=== PATIENT | female | born 2000 | race Caucasian/White ===

== ENCOUNTER 2021-02-27 15:47 | Emergency (ER) | payer OTHER, SELFPAY ==
--- NOTE | 2021-02-27 15:53 | ED.NAVMDI ---
HPI - Nausea/Vomiting/Diarrhea General Chief complaint: Nausea/Vomiting/Diarrhea Stated complaint: 12 wks , vomiting Time Seen by Provider: 02/27/21 15:50 Source: patient Mode of arrival: ambulatory Limitations: no limitations History of Present Illness HPI Narrative: Patient is a 20-year-old female at 12 weeks age of gestation complaining of nausea vomiting that started since the beginning of her but run out of her ondansetron that was prescribed to her by her [employer] PROFESSIONAL for nausea vomiting. Patient denies any abdominal pain, vaginal bleeding or vaginal discharge. Patient states that she has had care, has had an ultrasound and recently seen her RETAIL SECURITY PROFESSIONAL this past week. Related Data Allergies Allergy/AdvReac Type Severity Reaction Status Date / Time No Known Allergies Allergy Verified 02/27/21 16:12 Review of Systems Review of Systems: All systems reviewed & are unremarkable except as noted in HPI and below Constitutional: Constitutional: Denies body ache(s), Denies chills, Denies excessive sweating, Denies fatigue, Denies fever(s), Denies headache(s), Denies lethargy, Denies malaise, Denies weakness and Denies weight loss Eyes: Eyes: Denies blurry vision, Denies change in vision and Denies loss of vision ENT: Denies dizziness, Denies ear discharge, Denies headache(s), Denies lip swelling, Denies epistaxis, Denies nasal congestion, Denies neck pain, Denies throat swelling and Denies tongue swelling Cardiovascular: Cardiovascular: Denies chest pain, Denies chest pain at rest, Denies chest pain with activity, Denies diaphoresis, Denies rapid heart rate, Denies edema, Denies irregular heart rhythm, Denies lightheadedness, Denies palpitations, Denies dyspnea and Denies dyspnea on exertion Respiratory: Respiratory: Denies chest congestion, Denies cough, Denies hemoptysis, Denies dyspnea and Denies dyspnea on exertion Gastrointestinal: Gastrointestinal: Denies abdominal pain, Denies melena, Denies hematochezia, Denies diarrhea and Denies hematemesis Musculoskeletal: Musculoskeletal: Denies abnormal gait, Denies deformity, Denies joint swelling, Denies limited range of motion, Denies neck pain and Denies numbness Neurologic: Denies Abnormal speech present, Denies abnormal gait, Denies confusion, Denies dizziness, Denies headache(s), Denies focal weakness, Denies loss of vision, Denies numbness, Denies Other visual disturbances, Denies Sensory deficit (Neuro) and Denies weakness Psychiatric: Psychiatric: Denies confusion, Denies depression, Denies auditory hallucinations, Denies homicidal ideation and Denies suicidal ideation Endocrine: Endocrine: Denies cold intolerance, Denies excessive sweating, Denies fatigue, Denies heat intolerance and Denies palpitations Hematologic/Lymphatic: Hematologic/Lymphatic: Denies easy bleeding and Denies easy bruising Allergic/Immunologic: Allergic/Immunologic: Denies lip swelling, Denies throat swelling and Denies tongue swelling PMFSH Comments Past medical history: None Social history: Non-smoker no EtOH or drug use Family history: Noncontributory Exam Const: General: cooperative, healthy appearing, comfortable, no acute distress, well developed, alert and awake; No confusion Orientation/consciousness: oriented to person, oriented to place, oriented to time, patient oriented x3 and No confusion Limitations: no limitations HENMT: Head: normal to inspection, normocephalic and atraumatic Ears: hearing grossly normal bilaterally, TM normal on the right and TM normal on the left General nose exam: Normal external nose present, Normal nares present and No nasal discharge present Face and sinus: normal facial exam Mouth: Yes Normal oral and palatal mucosa present, Yes lip normal, Yes tongue normal and Yes oropharynx normal Throat: posterior oropharynx normal, tonsils normal and uvula midline Eyes: General: appearance normal, both eyes and all related structures Pupils: Equal, round a
[2021-02-27 15:55] VITALS: BP 135/88; PULSE 102; RESP 16; TEMP 36.6; O2SAT 98
[2021-02-27 16:14] LABS: Basophils Percent Auto 0.3 % (0.2-1.2); Eosinophils Percent Auto 0.3 % (0-4.4); Hematocrit 40.3 % (37.0-47.0); Hemoglobin 14.1 g/dL (12.0-15.0); Immature Granulocyte Absolute 0.03 K/mm3 (0.00-0.031); Immature Granulocyte Percent A 0.3 % (0-0.5); Lymphocytes Absolute Auto 1.42 K/mm3 (0.9-3.2); Lymphocytes Percent Auto 12.3 % (18.3-44.2); Mean Corpuscular Hemoglobin 32.6 pg (26-34); Mean Corpuscular Volume 93.3 fl (80-100); Mean Platelet Volume 10.9 fl (7.4-10.4); Monocytes Absolute Auto 0.8 K/mm3 (0.1-0.6); Monocytes Percent Auto 6.5 % (2.6-8.5); Neutrophils Absolute Auto 9.2 K/mm3 (1.3-6.7); Neutrophils Percent Auto 80.3 % (45.5-73.1); Platelet Count Result 307 k/mm3 (150-375); Red Blood Count 4.32 M/mm3 (4.2-5.4); Red Cell Distribution Width 12.3 % (11.5-14.5); White Blood Count 11.5 K/mm3 (4.5-10.0)
[2021-02-27 16:19] LABS: Add Urine Microscopic? YES; Appearance Urine Cloudy (Clear); Bacteria Urine Trace /hpf; Bilirubin Urine Negative (Negative); Blood Urine Negative (Negative); Color Urine Amber (Yellow); Glucose Urine UA Negative (Negative); Ketones Urine 2+ mg/dL (Negative); Leukocyte Esterase Ur Negative LEU/UL (Negative); Mucus Urine Heavy /lpf; Nitrate Urine Negative (Negative); Protein Urine 2+ mg/dL (Negative); RBC Urine 0-2 /hpf (0-2); Specific Grav Ur 1.028 (1.001-1.035); Squamous Epithelial Cell Urine Moderate /hpf (Few); WBC Urine 0-3 /hpf
[2021-02-27] MEDS: SODIUM CHLORIDE 0.9% IV 1,000 ML 999 ML IV CONT (16:19)
[2021-02-27 16:34] LABS: Alanine Aminotransferase 14 U/L (4-35); Albumin Level 4.6 g/dL (3.5-5.1); Alkaline Phosphatase 74 U/L (38-126); Anion Gap 8 mmol/L (8-16); Aspartate Amino Transferase 29 U/L (14-36); Bilirubin,Total 0.5 mg/dL (0.2-1.3); Blood Urea Nitrogen 6 mg/dL (7-17); Calcium 10.1 mg/dL (8.4-10.2); Carbon Dioxide 25 mmol/L (22-30); Chloride 105 mmol/L (98-107); Estimated CRCL calculation 114 ml/min; Estimated Glomerular Filt Rate > 60; Glucose 84 mg/dL (65-105); Lipase 62 U/L (23-300); Potassium 3.9 mmol/L (3.4-5.0); Sodium 138 mmol/L (137-145)
[2021-02-27] MEDS: SODIUM CHLORIDE 0.9% IV 50 ML 400 ML (17:44)
[2021-02-27] MEDS: PROMETHAZINE HCL 25 MG/ML AMPUL 12.5 MG IV PUSH (17:44)
[2021-02-27 18:15] VITALS: BP 110/62; PULSE 100; RESP 16; O2SAT 96
== END 2021-02-27 18:15 | disposition home or self-care (01) ==
PROVIDERS: Emergency Provider Emergency Medicine; PCP Family Medicine
DX: O21.9 Vomiting of pregnancy, unspecified (principal); Z3A.12 12 weeks gestation of pregnancy
CPT/HCPCS: 36415; 80053; 81001; 83690; 85025; 96361; 96374; 99284; J2550; J7030

== ENCOUNTER 2021-05-25 16:10 | Observation (INO) | payer OTHER, SELFPAY ==
[2021-05-25 16:24] VITALS: BP 120/68; PULSE 98
[2021-05-25 16:30] VITALS: BMI 30.2
--- NOTE | 2021-05-25 16:31 | OBADM ---
This patient, Maria Teresa Bliss, admitted to the OB room OB Post 116 for observation. Patient/family oriented to hospital policies and general routines including ID bracelet, bed and alarms, visiting hours, pain management, procedures, bathroom and other care routines, personal items, smoking policy, room service/diet, and visiting hours. Patient/Family are encouraged to report perceived risks to care and to ask questions if they do not understand what they are told or what they should do.
--- NOTE | 2021-05-27 07:06 | PM.OBTRLD ---
OB - Triage/Final Diagnosis Visit Information Reason for evaluation: threatened labor Comments/Additional reasons for admission: I have assessed the risk for this patient, Maria Teresa Bliss, and determined that she would benefit from observation care.
== END 2021-05-25 17:05 | disposition home or self-care (01) ==
PROVIDERS: Admitting Provider Obstetrics & Gynecology; PCP Family Medicine; Visit Provider Obstetrics & Gynecology
DX: O47.02 False labor before 37 completed weeks of gestation, second trimester (principal); Z3A.24 24 weeks gestation of pregnancy
CPT/HCPCS: 59025; G0378; G0379

== ENCOUNTER 2021-09-07 06:14 | Inpatient (IN) | payer OTHER, SELFPAY ==
[2021-09-07] VITALS (203 sets, daily range): BP systolic 66–136; BP diastolic 32–98; PULSE 63–152; TEMP 36.6–38.3; O2SAT 79–100; BMI 33.3
[2021-09-07] MEDS: OXYTOCIN 30 UNITS/NS 500 ML 30 UNITS/500 ML BAG IV CONT (07:12)
[2021-09-07] MEDS: LACTATED RINGERS 1,000 ML 125 ML IV CONT ×3 (07:13→16:30)
[2021-09-07 07:22] LABS: Basophils Absolute Auto 0.1 K/mm3 (0.0-0.1); Basophils Percent Auto 0.4 % (0.2-1.2); Eosinophils Absolute Auto 0.1 K/mm3 (0-0.3); Hematocrit 36.1 % (37.0-47.0); Hemoglobin 12.3 g/dL (12.0-15.0); Immature Granulocyte Absolute 0.08 K/mm3 (0.00-0.031); Immature Granulocyte Percent A 0.7 % (0-0.5); Lymphocytes Absolute Auto 2.26 K/mm3 (0.9-3.2); Mean Corpuscular HGB Conc 34.1 g/dl (32-36); Mean Corpuscular Hemoglobin 32.1 pg (26-34); Mean Corpuscular Volume 94.3 fl (80-100); Mean Platelet Volume 11.6 fl (7.4-10.4); Monocytes Absolute Auto 1.1 K/mm3 (0.1-0.6); Neutrophils Absolute Auto 8.3 K/mm3 (1.3-6.7); Neutrophils Percent Auto 69.9 % (45.5-73.1); Platelet Count Result 241 k/mm3 (150-375); Red Blood Count 3.83 M/mm3 (4.2-5.4); Red Cell Distribution Width 14.2 % (11.5-14.5); White Blood Count 11.9 K/mm3 (4.5-10.0)
--- NOTE | 2021-09-07 07:26 | LDADM ---
This patient, Maria Teresa Bliss, was admitted to Labor/Delivery/Recovery 108 on 09/07/21 at 06:14. Plans for labor, pain management and were discussed with patient. Patient/family oriented to hospital policies and general routines including ID bracelet, bed and alarms, visiting hours, pain management, procedures, bathroom and other care routines, personal items, smoking policy, room service/diet and guest tray routines, security routines, and visiting hours. Patient/Family are encouraged to report perceived risks to care and to ask questions if they do not understand what they are told or what they should do. See OBIX for further documentation.
--- NOTE | 2021-09-07 07:28 | PM.IMHP ---
H&P: HPI History of Present Illness Date/Time: 09/07/21 07:06 Maria Teresa is a 21yo @ 39.3wks (KIMMY 09/11/21) who presents for elective IOL. She reports good movement. Irregular contractions. No Vb or LOF. She has had routine care. Her is complicated by: - Anemia on iron twice daily Chief Complaint: induction of labor Review of Systems Review of Systems: All systems reviewed & are unremarkable except as noted in HPI and below (HPI) [facility] Family History Family History Other No pertinent family history Social History Social History Substance use: never Spiritual care concerns: No Meds Home Medications and Allergies Home Medications Medication Instructions Recorded Confirmed Type ondansetron HCl [Zofran] 4 mg PO Q8H PRN #10 tablet 02/27/21 08/18/21 Rx PNV cmb#95-ferrous fumarate-FA 1 tablet PO DAILY 08/18/21 08/18/21 History [] doxylamine succinate [Unisom 25 mg PO HS PRN 08/18/21 08/18/21 History (doxylamine)] ferrous sulfate [Iron (ferrous 325 mg PO DAILY 08/18/21 08/18/21 History sulfate)] pyridoxine (vitamin B6) 5 mg PO DAILY 08/18/21 08/18/21 History Allergies Allergy/AdvReac Type Severity Reaction Status Date / Time No Known Allergies Allergy Verified 02/27/21 16:12 Exam Const: General: cooperative, healthy appearing, comfortable and no acute distress Resp: Effort & Inspection: normal respiratory effort Cardio: Rate: regular rate GI: Inspection: normal to inspection and non-distended GI Palp: Yes Soft to palpation : Other: FHT's: 120's/ mod ed/ + accels/ no decels - cat 1 TOCO: irregular ctx's q2-6min Cervix: 3/50/-3 Membranes: AROM, clear 0725 Presentation: cephalic Skin: General skin exam: normal color Neuro: General: patient oriented x3 Extrem: General: normal to inspection Psych: Appearance: grossly normal Affect: normal affect Attitude: cooperative Assessment and Plan Assessment and plan (1) Elective induction of labor planned: Status: Acute (2) : Qualifiers: Weeks of gestation: 39 weeks Qualified Code(s): Z3A.39 - 39 weeks gestation of Code(s): Z34.90 - Encounter for supervision of normal , unspecified, unspecified trimester Status: Acute Additional Plan - Admitted to L&D for elective IOL - Pitocin per protocol - Continuous monitoring; reassuring - GBS negative - Anesthesia consult PRN pain
--- NOTE | 2021-09-07 07:28 | WPDHPUPDATE1 ---
History and Physical Update Update Date/Time: 09/07/21 07:28 History and Physical has been reviewed, including an updated exam of the patient. There are NO changes in the patient's condition. Risks, benefits, and alternatives have been discussed and questions answered. Patient agrees to proceed with procedure.
[2021-09-07] MEDS: fentaNYL CITRATE INJ (*CRX) 100 MCG/2 ML VIAL 50 MCG IV PUSH (09:44)
--- NOTE | 2021-09-07 10:21 | WPDANESEPPF ---
Anes - Initial Pre Proc Eval Procedure: labor epidural Date/Time: 09/07/21 10:21 Surgeon: Cathleen Pérez MD Pre Op Diagnosis: labor pain Pre Op Diagnosis: Induction of Labor Patient Data Age: 21 Gender: F Height: 1.57 m Weight: 82.5 kg Last Vital Signs Temp 36.8 C 09/07/21 09:30 Pulse 69 09/07/21 10:00 BP 119/73 09/07/21 10:00 Pulse Ox 99 09/07/21 10:16 Allergies Allergy/AdvReac Type Severity Reaction Status Date / Time No Known Allergies Allergy Verified 02/27/21 16:12 Home Medications Medication Instructions Recorded Confirmed Type ondansetron HCl [Zofran] 4 mg PO Q8H PRN #10 tablet 02/27/21 09/07/21 Rx PNV cmb#95-ferrous fumarate-FA 1 tablet PO DAILY 08/18/21 09/07/21 History [] doxylamine succinate [Unisom 25 mg PO HS PRN 08/18/21 09/07/21 History (doxylamine)] ferrous sulfate [Iron (ferrous 325 mg PO DAILY 08/18/21 09/07/21 History sulfate)] pyridoxine (vitamin B6) 5 mg PO DAILY 08/18/21 09/07/21 History Laboratory Tests 09/07/21 09/07/21 09/07/21 06:52 06:52 06:52 WBC 11.9 K/mm3 H K/mm3 (4.5-10.0) RBC 3.83 M/mm3 L M/mm3 (4.2-5.4) Hgb 12.3 g/dL g/dL (12.0-15.0) Hct 36.1 % L % (37.0-47.0) MCV 94.3 fl fl (80-100) MCH 32.1 pg pg (26-34) MCHC 34.1 g/dl g/dl (32-36) RDW 14.2 % % (11.5-14.5) Plt Count 241 k/mm3 k/mm3 (150-375) MPV 11.6 fl H fl (7.4-10.4) Immature Gran % (Auto) 0.7 % H % (0-0.5) Neut % (Auto) 69.9 % % (45.5-73.1) Lymph % (Auto) 19.0 % % (18.3-44.2) [place] % (Auto) 9.0 % H % (2.6-8.5) Eos % (Auto) 1.0 % % (0-4.4) Baso % (Auto) 0.4 % % (0.2-1.2) Lymph # (Auto) 2.26 K/mm3 K/mm3 (0.9-3.2) [place] # (Auto) 1.1 K/mm3 H K/mm3 (0.1-0.6) Eos # (Auto) 0.1 K/mm3 K/mm3 (0-0.3) Baso # (Auto) 0.1 K/mm3 K/mm3 (0.0-0.1) Abs Immat Gran (auto) 0.08 K/mm3 H K/mm3 (0.00-0.031) Absolute Neuts (auto) 8.3 K/mm3 H K/mm3 (1.3-6.7) Absolute Nucleated RBC 0.0 K/mm3 K/mm3 (0.0-0.012) Nucleated RBC % 0.0 % % (0.0-0.2) RPR Pending Blood Type O Positive Antibody Screen Negative Patient hx anesthesia problems: none Family hx anesthesia problems: none Results Review: All pre-operative results and documents have been reviewed as part of the pre-operative evaluation. [facility] Family History Family History Other No pertinent family history Social History Social History Smoking status: Never smoker Substance use: never Spiritual care concerns: No Anes - Eval Final PreProcedure Day of Procedure 09/07/21 10:21 Patient weight: obese ASA classification: II Anesthesia type and monitoring: regional epidural and standard monitoring Results Review: All pre-operative results and documents have been reviewed as part of the pre-operative evaluation. Informed Consent: The patient's anesthetic plan and its attendant risks and benefits were discussed with the patient/family/POA. Questions were solicited and answers provided to the satisfaction of the patient/family/POA.
--- NOTE | 2021-09-07 12:17 | PM.OBPNLAB ---
Pain Control Date/time seen: 09/07/21 12:17 Pain control: epidural Pelvic Exam Dilation (cm): 6 Effacement (%): 100 station: -1 Amniotic membrane status: Ruptured Contractions Monitor mode: External Contraction frequency: 3 Status status: Category l Assessment and Plan Pitocin rate (mU/min): 10 Assessment: active labor Plan: continuous present management
[2021-09-07] MEDS: ONDANSETRON INJ 4 MG/2 ML VIAL IV PUSH (18:50)
[2021-09-07] MEDS: AMPICILLIN 2 GM/NS 100 ML 2 GM/100 ML BAG IVPB (20:03)
--- NOTE | 2021-09-07 20:10 | PM.OBPNLAB ---
Pain Control Date/time seen: 09/07/21 20:10 Pain control: epidural Comments: febrile Pelvic Exam Dilation (cm): 9 Effacement (%): 100 station: -1 Amniotic membrane status: Ruptured Contractions Monitor mode: Internal Contraction frequency: 3 Contraction pattern: Regular Contraction intensity: Moderate Status status: Category ll (reassuring) Assessment and Plan Pitocin rate (mU/min): 4 Assessment: active labor Comments: - Amp/gent IV for chorio - Tylenol IV - Protracted labor but cervical change made
[2021-09-07] MEDS: GENTAMICIN SULFATE INJ 315 MG in DEXTROSE 5% 100 ML 100 MG IVPB (21:05)
--- NOTE | 2021-09-07 21:42 | PM.OBPRVD ---
OB - Delivery Note Procedure Delivery date: 09/07/21 events: Labor Induction Intrapartal events: Prolonged Active Phase, Chorioamnionitis and Other (shoulder dystocia) Induction method: per pitocin protocol Delivery augmentation: rupture of membranes Delivery monitor: external FHT and internal uterine Route of delivery: Laceration Description: None Specimen: Yes (placenta) Quantitative Blood Loss (ml): 150 Anesthesia type: Epidural Disposition: floor Baby Date of : 09/07/21 Time of : 21:31 Weeks of gestation at delivery: 39 (.3) gender: Male Weight (pounds): 7 Weight (ounces): 0 presentation: vertex position: Left Occiput Transverse Placenta delivery description: Expressed cord vessel description: 3 Vessels score one minute: 8 score five minutes: 9 Narrative: Maria Teresa progressed to complete dilation and pushed with good maternal effort. She pushed for approximately 20 minutes. She delivered the head over intact perineum and the turtle sign was noted. she was then placed in Bob and suprapubic pressure was applied. The 's right shoulder (anterior) was still not able to be delivered. My hand was placed posteriorly and the posterior arm was delivered. The 's shoulders and body then delivered. The umbilical cord was then clamped and cut. The infant was handed off the waiting pediatric nurse where he was stimulated and cry was heard. A segment of cord was collected for cord gases and the remaining cord blood was collected for typing. With Pitocin running and gentle downward traction on the cord, the placenta delivered out complications. Bimanual massage was performed and good fundal tone was noted with minimal bleeding. Patient was examined and no lacerations were noted. Patient was informed of the shoulder dystocia that lasted for approximately 40 seconds. The was examined and moving both extremities without issue and no clavicular or humeral step-offs were noted. Sponge, lap, instrument, and needle counts were correct at the end the procedure. Mom and baby were left bonding in the birthing suite in stable condition.
[2021-09-07] MEDS: COSYNTROPIN 0.25 MG/ML VIAL 0.75 MG IV PUSH (22:03)
[2021-09-07] MEDS: OXYTOCIN 30 UNITS/NS 500 ML 30 UNITS/500 ML BAG 125 UNITS IV CONT (22:38)
[2021-09-07] MEDS: WITCH HAZEL 40 PADS 1 PAD TOPICAL (23:48)
[2021-09-07] MEDS: BENZOCAINE 20% AER SPR (*SP) 56 GM CAN 1 SPRAY TOPICAL (23:48)
[2021-09-08] MEDS: IBUPROFEN 600 MG TABLET
--- NOTE | 2021-09-08 00:15 | OBPPTRN ---
Patient transferred to post room #288 via wheelchair. Support person present. Oriented to unit, room, information board, rooming in, admission packet and security measures. Patient verbalizes understanding.
[2021-09-08 00:30] VITALS: BP 130/85; PULSE 95; RESP 16; TEMP 37.2
[2021-09-08] MEDS: IBUPROFEN 600 MG TABLET PO ×2 (01:29→12:11)
[2021-09-08 03:29] VITALS: BP 122/81; PULSE 92; RESP 16; TEMP 37
[2021-09-08 05:03] LABS: Hematocrit 34.3 % (37.0-47.0); Hemoglobin 11.6 g/dL (12.0-15.0); Mean Corpuscular HGB Conc 33.8 g/dl (32-36); Mean Corpuscular Volume 94.5 fl (80-100); Mean Platelet Volume 12.1 fl (7.4-10.4); Platelet Count Result 233 k/mm3 (150-375); Red Blood Count 3.63 M/mm3 (4.2-5.4); Red Cell Distribution Width 14.4 % (11.5-14.5); White Blood Count 27.7 K/mm3 (4.5-10.0)
[2021-09-08 05:56] LABS: Band Neutrophils Percent 4 % (0-6); Lymphocytes Absolute Manual 0.83 K/mm3 (1.1-4.5); Monocytes Absolute Manual 1.66 K/mm3 (0.1-0.90); Monocytes Percent Manual 6 % (3-9); Neutrophils Percent Manual 87 % (46-73); Platelet Estimate Adequate (Adequate); Total Cells Counted 100
[2021-09-08 07:03] LABS: Rapid Plasma Reagin Non-Reactive (NonReactive)
[2021-09-08 08:05] VITALS: BP 108/57; PULSE 68; RESP 16; TEMP 36.3; O2SAT 99
--- NOTE | 2021-09-08 09:28 | WPDANLDPN2 ---
Anes-Prog Note L&D Date/Time: 09/08/21 09:28 Comfortable throughout: labor and delivery Neuraxial method: epidural Epidural/Spinal procedure site: clean & non-tender Neuro status: Neuro function grossly intact. Cardiovascular status: normal Respiratory status: normal Airway patency: baseline Mental status: baseline Post-Op hydration status: normal Vital Signs: Last Vital Signs Temp 36.3 C L 09/08/21 08:05 Pulse 68 09/08/21 08:05 Resp 16 09/08/21 08:05 BP 108/57 L 09/08/21 08:05 Pulse Ox 99 09/08/21 08:05 Pain score (VAS): 5 I/O: Intake & Output 09/07/21 09/08/21 09/08/21 23:59 07:59 15:59 Intake Total 1000 Balance 1000 Post-procedural complaints: none and other Patient feedback: Patient satisfied with anesthetic care. pt had known wet tap, epidural catheter left in place. pt has no headache, but has neck and shoulder pain 5/10. counseled pt on taking pain meds and possible blood patch if pain worsens or headache develops.
[2021-09-08 12:11] VITALS: BP 120/69; PULSE 76; RESP 16; TEMP 36.6; O2SAT 99
--- NOTE | 2021-09-08 13:18 | PM.OBPNVD ---
OB - PN: Subj Subjective Date/time seen: 09/08/21 13:18 PPD#1 Maria Teresa reports doing ok today. She has a headache when sitting/standing. Anesthesia evaluated her; may do a blood patch. Otherwise, her pain is controlled. She reports her bleeding is very light. She has ambulated, voided, passed gas. She has tolerated regular diet. She is bottle feeding. She has been afebrile. She would like her son circumcised. She denies fever, chills, CP, SOB, vision changes, N/V, palpitations or dizziness. OB - PN: Obj Data Labs CBC & Chem 7: 09/08/21 03:34 Labs: Laboratory Results - last 24 hr 09/07/21 09/08/21 06:52 03:34 WBC 27.7 H RBC 3.63 L Hgb 11.6 L Hct 34.3 L MCV 94.5 MCH 32.0 MCHC 33.8 RDW 14.4 Plt Count 233 MPV 12.1 H Immature Gran % (Auto) Not Reportable Neut % (Auto) Not Reportable Lymph % (Auto) Not Reportable [place] % (Auto) Not Reportable Eos % (Auto) Not Reportable Baso % (Auto) Not Reportable Lymph # (Auto) Not Reportable [place] # (Auto) Not Reportable Eos # (Auto) Not Reportable Baso # (Auto) Not Reportable Abs Immat Gran (auto) Not Reportable Absolute Neuts (auto) Not Reportable Absolute Nucleated RBC Not Reportable Total Counted 100 Neutrophils % (Manual) 87 H Band Neutrophils % 4 Lymphocytes % (Manual) 3.0 L Monocytes % (Manual) 6 Nucleated RBC % Not Reportable Abs Neuts (Manual) 25.20 H Abs Lymphs (Manual) 0.83 L Abs Monocytes (Manual) 1.66 H Platelet Estimate Adequate RPR Non-reactive OB - PN A/P Assessment and Plan (1) Normal vaginal delivery: Code(s): O80 - Encounter for full-term uncomplicated delivery Status: Acute (2) Chorioamnionitis: Qualifiers: Fetus number: single or unspecified fetus Trimester: third trimester Qualified Code(s): O41.1230 - Chorioamnionitis, third trimester, not applicable or unspecified Code(s): O41.1290 - Chorioamnionitis, unspecified trimester, not applicable or unspecified Status: Acute (3) Shoulder dystocia during labor and delivery, delivered: Code(s): O66.0 - Obstructed labor due to shoulder dystocia Status: Acute Plan day: 1 Comments: - continue amp/gent until 24 hours PP - will repeat blood work in AM - Excedrin PRN [place] + caffeine; awaiting anesthesia's decision for blood patch - Circumcision performed w/o issue - possible d/c home tomorrow Time Spent With Patient Time: Total time spent is greater than 50% in coordination of care (as documented) at patient's floor/unit and/or counseling patient: Review of Systems Review of Systems: All systems reviewed & are unremarkable except as noted in HPI and below (HPI) Exam Const: General: cooperative, healthy appearing, comfortable and no acute distress Resp: Effort & Inspection: normal respiratory effort Auscultation: clear to auscultation bilaterally Cardio: Rate: regular rate GI: Inspection: normal to inspection and non-distended GI Palp: No abdominal tenderness and Yes Soft to palpation Auscultation: normal bowel sounds : Other: fundus firm; nontender Skin: General skin exam: normal color Neuro: General: patient oriented x3 Extrem: General: normal to inspection Psych: Appearance: grossly normal Affect: normal affect Attitude: cooperative
[2021-09-08] MEDS: ACETAMINOPHEN/ASPIRIN/CAFFEINE 250-250-65 MG TABLET 1 TABLET PO (13:47)
[2021-09-08] MEDS: TETANUS,DIPHTHERIA,AC PERTUSSIS ADULT (0.5 ML) BOOSTRIX IM (13:48)
[2021-09-08] MEDS: AMPICILLIN 2 GM/NS 100 ML 2 GM/100 ML BAG IVPB ×2 (13:49→20:39)
[2021-09-08 16:00] VITALS: BP 115/80; PULSE 81; RESP 18; TEMP 36.9
--- NOTE | 2021-09-08 18:20 | PC.NURSE ---
Calixto Mcghee [employer] ATTEND[employer] here to see pt. Pulled epidural catheter with blue tip intact.
[2021-09-08] MEDS: GENTAMICIN SULFATE INJ 315 MG in DEXTROSE 5% 100 ML 97.72 MG IVPB (19:37)
[2021-09-08 20:05] VITALS: BP 128/86; PULSE 74; RESP 18; TEMP 36.6; O2SAT 100
[2021-09-09] MEDS: ACETAMINOPHEN/ASPIRIN/CAFFEINE 250-250-65 MG TABLET 1 TABLET PO ×2 (00:11→07:39)
[2021-09-09 06:21] LABS: Basophils Absolute Auto 0.1 K/mm3 (0.0-0.1); Basophils Percent Auto 0.4 % (0.2-1.2); Eosinophils Absolute Auto 0.2 K/mm3 (0-0.3); Eosinophils Percent Auto 1.2 % (0-4.4); Hematocrit 33.4 % (37.0-47.0); Hemoglobin 11.4 g/dL (12.0-15.0); Immature Granulocyte Absolute 0.13 K/mm3 (0.00-0.031); Immature Granulocyte Percent A 0.9 % (0-0.5); Lymphocytes Absolute Auto 2.41 K/mm3 (0.9-3.2); Lymphocytes Percent Auto 16.4 % (18.3-44.2); Mean Corpuscular HGB Conc 34.1 g/dl (32-36); Mean Corpuscular Volume 96.8 fl (80-100); Mean Platelet Volume 11.2 fl (7.4-10.4); Monocytes Percent Auto 6.6 % (2.6-8.5); Neutrophils Percent Auto 74.5 % (45.5-73.1); Platelet Count Result 220 k/mm3 (150-375); Red Blood Count 3.45 M/mm3 (4.2-5.4); Red Cell Distribution Width 14.4 % (11.5-14.5); White Blood Count 14.7 K/mm3 (4.5-10.0)
--- NOTE | 2021-09-09 07:32 | PM.OBPNVD ---
OB - PN: Subj Subjective Date/time seen: 09/09/21 07:20 PPD#2 Maria Teresa reports doing better today. She still has a headache when sitting/standing. Anesthesia evaluated her; decided not to do a blood patch because the epidural catheter fell out. Otherwise, her pain is controlled. She reports her bleeding is very light. She has ambulated, voided, passed gas. She has tolerated regular diet. She is bottle feeding. She has been afebrile. She would like to go home today. She denies fever, chills, CP, SOB, vision changes, N/V, palpitations or dizziness. OB - PN: Obj Data Labs CBC & Chem 7: 09/09/21 06:10 Labs: Laboratory Results - last 24 hr 09/09/21 06:10 WBC 14.7 H RBC 3.45 L Hgb 11.4 L Hct 33.4 L MCV 96.8 MCH 33.0 MCHC 34.1 RDW 14.4 Plt Count 220 MPV 11.2 H Immature Gran % (Auto) 0.9 H Neut % (Auto) 74.5 H Lymph % (Auto) 16.4 L [place] % (Auto) 6.6 Eos % (Auto) 1.2 Baso % (Auto) 0.4 Lymph # (Auto) 2.41 [place] # (Auto) 1.0 H Eos # (Auto) 0.2 Baso # (Auto) 0.1 Abs Immat Gran (auto) 0.13 H Absolute Neuts (auto) 11.0 H Absolute Nucleated RBC 0.0 Nucleated RBC % 0.0 OB - PN A/P Assessment and Plan (1) Normal vaginal delivery: Code(s): O80 - Encounter for full-term uncomplicated delivery Status: Acute (2) Chorioamnionitis: Qualifiers: Fetus number: single or unspecified fetus Trimester: third trimester Qualified Code(s): O41.1230 - Chorioamnionitis, third trimester, not applicable or unspecified Code(s): O41.1290 - Chorioamnionitis, unspecified trimester, not applicable or unspecified Status: Acute (3) Shoulder dystocia during labor and delivery, delivered: Code(s): O66.0 - Obstructed labor due to shoulder dystocia Status: Acute Plan day: 2 Plan: routine care and discharge home Comments: - f/u in 4 wks - Pelvic rest; take meds as prescribed - ER return precautions: fever, HTN, bleeding, n/v/abd pain Time Spent With Patient Time: Total time spent is greater than 50% in coordination of care (as documented) at patient's floor/unit and/or counseling patient: Review of Systems Review of Systems: All systems reviewed & are unremarkable except as noted in HPI and below (HPI) Exam Const: General: cooperative, healthy appearing, comfortable and no acute distress Resp: Effort & Inspection: normal respiratory effort Auscultation: clear to auscultation bilaterally Cardio: Rate: regular rate GI: Inspection: non-distended GI Palp: No abdominal tenderness and Yes Soft to palpation Auscultation: normal bowel sounds : Other: fundus firm; nontender Skin: General skin exam: normal color Neuro: General: patient oriented x3 Extrem: General: normal to inspection Psych: Appearance: grossly normal Affect: normal affect Attitude: cooperative
[2021-09-09 07:45] VITALS: PULSE 74; RESP 16; O2SAT 100
[2021-09-09 08:25] VITALS: BP 117/79; PULSE 74; RESP 16; TEMP 36.6; O2SAT 100
--- NOTE | 2021-09-09 12:42 | PC.NURSE ---
Patient viewed the discharge video Mother & Baby Care, The First Two Weeks . Patient was given the opportunity and encouraged to ask questions. Patient verbalized understanding of information shared and has been given the mother/baby guide for home reference.
[2021-09-10 09:39] VITALS: BP 129/86; PULSE 80; RESP 20; TEMP 36.6; O2SAT 100
--- NOTE | 2021-09-10 16:06 | PM.OBDSVD ---
DS: Admitting Diagnosis Discharge Date 09/09/21 Admitting Diagnosis induction of labor DS: Discharge Diagnosis Discharge Diagnosis (1) Normal vaginal delivery: Code(s): O80 - Encounter for full-term uncomplicated delivery Status: Acute (2) Chorioamnionitis: Qualifiers: Fetus number: single or unspecified fetus Trimester: third trimester Qualified Code(s): O41.1230 - Chorioamnionitis, third trimester, not applicable or unspecified Code(s): O41.1290 - Chorioamnionitis, unspecified trimester, not applicable or unspecified Status: Acute (3) Shoulder dystocia during labor and delivery, delivered: Code(s): O66.0 - Obstructed labor due to shoulder dystocia Status: Acute OB - DS: Summary OB Procedures : Ultrasound OB Procedures Intrapartum: Spontaneous Vag Delivery OB Procedures: : Antibiotics Peripartum Data Delivery Method: Natural Vaginal Laceration Description: None complications: none 1: Gender: Male Disposition of : home Status at Discharge Functional status at discharge: independent ambulation Overall status at discharge: patient is back to baseline Time Spent with Patient Time attestation: Total time spent providing and/or coordinating discharge services: Exam Const: General: cooperative, healthy appearing, comfortable and no acute distress Resp: Effort & Inspection: normal respiratory effort Auscultation: clear to auscultation bilaterally Cardio: Rate: regular rate GI: Inspection: normal to inspection and non-distended GI Palp: No abdominal tenderness and Yes Soft to palpation Auscultation: normal bowel sounds : Other: fundus firm Skin: General skin exam: normal color Neuro: General: patient oriented x3 Extrem: General: normal to inspection Psych: Appearance: grossly normal Affect: normal affect Attitude: cooperative DS: Data Data Completed and Pending Pending studies at discharge: Pending at discharge 09/08/21 00:26 Surgical [PTH] Routine Labs on day of discharge: Labs from last 24 hours 09/09/21 04:44 Sodium Cancelled Potassium Cancelled Chloride Cancelled Carbon Dioxide Cancelled Anion Gap Cancelled BUN Cancelled Creatinine Cancelled Estim Creat Clear Calc Cancelled Estimated GFR Cancelled Glucose Cancelled Calcium Cancelled Total Bilirubin Cancelled AST Cancelled ALT Cancelled Alkaline Phosphatase Cancelled Total Protein Cancelled Albumin Cancelled Discharge Plan Discharge Attending physician on discharge: Beto,Cathleen N. Consulting providers: Ricardo Parrish Discharging Clinician: Cathleen Pérez Anticipated Discharge Date/Time: 09/09/21 16:00 Patient Disposition: Home, Self-Care Activity: may shower and pelvic rest Diet: regular Discharge Instructions: Education: Mom and Baby Guide Given to: Mother Follow-Up: Call your delivering provider's office for an appointment to be seen in: 4 Weeks Mom and baby should come to the [facility] for the follow-up appointment. Appointment Date/Time: Friday, September 10, 2021 at 9:00 am What to expect at your follow-up visit: Blood Pressure Check Physical Assessment Call [phone] if you are unable to keep your appointment time. BREAST CARE: * Wear a snug supportive bra. * For engorgement discomfort: Bottle Feeding: * May apply ice packs EPISIOTOMY/PERINEAL CARE: * Until bleeding stops, use your indu bottle after urinating * Change your pad frequently throughout the day * You may take sitz baths several times a day (fill your bathtub with warm water and soak for 20 minutes.) Do NOT bathe in the water * No tub baths until seen by your physician - You may shower ACTIVITY: * Rest as much as possible. * Do not exercise or lift anything heavier than your baby (such as laundry or other childre
== END 2021-09-09 14:31 | disposition home or self-care (01) | DRG 560 ==
LOC: ANHLDR 06:30 → ANHOB2 09-08 00:24
PROVIDERS: Admitting Provider Obstetrics & Gynecology; PCP Family Medicine; Visit Provider Obstetrics & Gynecology
DX: O63.9 Long labor, unspecified (principal); O36.8330 Maternal care for abnormalities of the fetal heart rate or rhythm, third trimester, not applicable or unspecified; Z37.0 Single live birth; Z3A.39 39 weeks gestation of pregnancy; O66.0 Obstructed labor due to shoulder dystocia
CPT/HCPCS: 36415; 85025; 86592; 86850; 86900; 86901; 88307; 90715; A9270; J0131; J0290; J0834; J1580; J2405; J2590; J2795; J3010; J7120

== ENCOUNTER 2021-09-11 12:53 | Emergency (ER) | payer OTHER, SELFPAY ==
[2021-09-11 13:05] VITALS: BP 122/85; PULSE 67; RESP 16; O2SAT 98
[2021-09-11 13:10] VITALS: TEMP 36.9
--- NOTE | 2021-09-11 13:47 | ED.HA ---
HPI - Headache General Chief Complaint: Headache Stated Complaint: headache Time Seen by Provider: 09/11/21 13:02 Source: patient and family Mode of arrival: ambulatory Limitations: no limitations History of Present Illness HPI Narrative: Patient presents with occipital headache while laying down flat, become diffuse and generalized all over but when she stands up or sit up. Started 3 to 4 days ago. Patient is status post epidural 6 days ago. History of migraine headache. Patient report this headache feels similar to her previous migraine headache. Patient reports that light and noise bothering her the most, Related Data Allergies Allergy/AdvReac Type Severity Reaction Status Date / Time No Known Allergies Allergy Verified 09/11/21 13:04 Review of Systems Review of Systems: CONSTITUTIONAL: Denies fever, chills, or sweats. EYES: Denies visual changes, redness, or discharge. ENT: Denies rhinorrhea, congestion, sore throat, or otalgia. CARDIOVASCULAR: Denies chest pain, palpitations, or edema. RESPIRATORY: Denies cough or dyspnea. GASTROINTESTINAL: Denies abdominal pain, nausea, vomiting, or diarrhea. GENITOURINARY: Denies dysuria or hematuria. SKIN: Denies rash or itching. MUSCULOSKELETAL: Denies back pain, joint pain, or myalgia. NEUROLOGIC: Denies headache, numbness, or weakness. PSYCHIATRIC: Denies anxiety or depression. PMFSH Family History Family History Other No pertinent family history Social History Social History Smoking status: Never smoker Substance use: never Spiritual care concerns: No Exam Narrative: General appearance: Well-developed, well-nourished Skin: Normal color Head: Normocephalic, nontraumatic Eyes: Clear conjunctiva ENT: Oropharynx normal, ears normal, nose normal Neck: Supple, nontender Chest and respiratory: Airway patent, no respiratory distress, no accessory muscle use Heart: Regular rate/rhythm Abdomen: Soft, nontender, no organomegaly, quiet bowel sounds Vascular: Normal peripheral pulses, normal capillary refill. 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 Patient is status post epidural 6 days ago. Patient symptoms resolved to 0 out of 10 after having 1 L of fluid, 30 mg of Toradol, 10 mg of Reglan, 50 mg of Benadryl and 400 mg of caffeine orally. Currently patient is sitting up in bed, denying any headache, feeling great. Differential Diagnosis Differential diagnosis: Likely migraine, tension headache and headache Critical Care Time Critical Care Time Critical Care Time: Yes Total Critical Care Time: 30 Discharge Plan Discharge Clinical Impression: Headache Qualifiers: Headache type: unspecified Headache chronicity pattern: unspecified pattern Intractability: not intractable Qualified Code(s): R51.9 - Headache, unspecified Patient Disposition: Home, Self-Care Condition: Improved Instructions: Antibiotic Form, Acute Headache (ED) Additiona
[2021-09-11] MEDS: diphenhydrAMINE HCl INJ 50 MG/ML VIAL IV PUSH (13:54)
[2021-09-11] MEDS: SODIUM CHLORIDE 0.9% IV 1,000 ML 999 ML IV CONT (13:54)
[2021-09-11] MEDS: METOCLOPRAMIDE HCL INJ 10 MG/2 ML VIAL IV PUSH (13:56)
[2021-09-11] MEDS: KETOROLAC 30 MG/ML VIAL (*BKC) IV PUSH (13:56)
[2021-09-11 16:06] VITALS: BP 119/85; PULSE 84; RESP 16; O2SAT 99
== END 2021-09-11 16:07 | disposition home or self-care (01) ==
PROVIDERS: Emergency Provider Emergency Medicine; PCP Family Medicine
DX: R51.9 Headache, unspecified (principal)
CPT/HCPCS: 96361; 96374; 96375; 99284; J1200; J1885; J2765; J7030

== ENCOUNTER 2021-09-13 17:23 | Outpatient (CLI) | payer OTHER, SELFPAY ==
[2021-09-13 17:46] VITALS: PULSE 92; O2SAT 99
[2021-09-13 17:48] VITALS: BP 120/87; PULSE 71
[2021-09-13 17:50] VITALS: PULSE 88; O2SAT 99
[2021-09-13 17:54] VITALS: BP 127/74; PULSE 86
--- NOTE | 2021-09-13 18:02 | P.PCNANE_ITS ---
Anes - Epidural Blood Patch PN Date/Time: 09/13/21 18:02 Consent: I have discussed with the patient/family/POA, the rationale of a lumbar epidural autologous blood patch for the treatment of post-dural puncture headache (spinal headache), including associated potential risks, benefits, comp lications and side effects. I have also discussed more conservative treatment options such as intravenous hydration, caffeine and non-prescription analgesics. The patient/family/POA, understand(s) and wish(es) to proceed with epidural autologous blood patch as treatment for the patient's post-dural puncture headache. Time-Out: A pre-procedural Time-Out was completed immediately before starting the procedure and confirmed: Patient Identification, Site, Procedure, Patient Position and the Availability of Requisite Equipment. Clinical Indications: PDPH Epidural Insertion Note Patient position: sitting Skin prep: chlorhexidine and sterile drape Needle: 18 gauge Tuohy-Schliff Technique: loss of resistance Skin anesthesia: lidocaine 1% Observations: tolerated well Complications: none
--- NOTE | 2021-09-13 18:09 | PC.NURSE ---
1730- Dr. Parrish at [facility] discussing plan of care with patient. Patient agreeable to blood patch at this time. 1745- Dr. Parrish at bedside , epidural placed, 20 cc blood drawn via ac vein in Left arm. See Dr. Parrish notes.
--- NOTE | 2021-09-13 18:11 | PC.NURSE ---
1752- BLood patch complete, patient lying flat, recheck in 1 hr.
--- NOTE | 2021-09-13 19:15 | PC.NURSE ---
Dr. Parrish at bedside. Assessed pt and may D/C home.
== END 2021-09-13 19:17 | disposition home or self-care (01) ==
LOC: ANHOBOP 17:42 → ANHOBPP 17:42
PROVIDERS: PCP Family Medicine; Visit Provider Obstetrics & Gynecology
DX: T88.59XA Other complications of anesthesia, initial encounter (principal); R51.9 Headache, unspecified
CPT/HCPCS: 62273; 99199